=== PATIENT | female | born 1990 | race Caucasian/White ===

== ENCOUNTER 2017-09-26 17:06 | Emergency (ER) | payer OTHER ==
--- NOTE | 2017-09-26 17:11 | EDPHY ---
H & P Source: Patient Exam Limitations: No limitations Time Seen by Provider: 09/26/17 17:11 HPI/ROS: HPI: This is a 27-year-old female who presents with Chief Complaint: Right calf DVT Location: Right calf Quality: Blood clot Duration: 6 days Signs and Symptoms: No bleeding, no radiation, no numbness, no weakness, no tingling, no incontinence, no decreased range of motion, + swelling, + pain, no fever, no skin color changes Timing: Gradually worsened Severity: Moderate Context: Patient was sent from Radiology with a positive right lower extremity ultrasound showing deep venous thrombosis in the peroneal veins of the right calf. Patient reports that she recently went to [place] on a trip. She is a smoker. Does not take oral control pills. Patient works at a [employer] center and has a sedentary lifestyle. She noticed on Thursday right calf pain that was mild in nature and described as achy as well as nonradiating. She then over the next 2 days noticed some right calf swelling. Denies paresthesias , weakness, skin color changes. Patient has health insurance and a primary care provider. She denies any history of lung disease. Denies any shortness of breath, palpitations, chest pain. Modifying Factors: None Comment: ROS: see HPI Constitutional: No fever, no chills, no weight loss Eyes: No blurred vision Respiratory: No shortness of breath, no cough Cardiovascular: No chest pain Gastrointestinal: No nausea, no vomiting no diarrhea Genitourinary: No dysuria Extremities: No myalgias Neurologic: No weakness, no numbness Skin: No rashes Hematologic: No bruising, no bleeding MEDICAL/SURGICAL/SOCIAL HISTORY: Medical history: Generally healthy. Does not take any regular medications. Surgical history: Denies Social history: Employed. Smoker. CONSTITUTIONAL: Extremely pleasant nontoxic appearing young adult white female , awake and alert, no obvious distress HEENT: Atraumatic and normocephalic, PERRL, EOMI. Nares patent; no rhinorrhea; no nasal mucosal edema. Tympanic membranes clear. Oropharynx clear, no exudate and moist pink mucosa. Airway patent. No lymphadenopathy. No meningismus. Cardiovascular: Normal S1/S2, regular rate, regular rhythm, without murmur rub or gallop. PULMONARY/CHEST: Symmetrical and nontender. Clear to auscultation bilaterally. Good air movement. No accessory muscle usage. ABDOMEN: Soft, nondistended, nontender, no rebound, no guarding, no peritoneal signs, no masses or organomegaly. No CVAT. EXTREMITIES: 2/2 pulses, strength 5/5, moderate tenderness with palpation of the right calf. No palpable cord. No varicose vein. no deformities, no clubbing, no cyanosis or edema. NEUROLOGICAL: no focal neuro deficits. GCS 15. SKIN: Warm and dry, no erythema. no rash. Good capillary refill. (No Fink) Constitutional: Initial Vital Signs Temperature (C) 36.9 C 09/26/17 17:10 Heart Rate 79 09/26/17 17:10 Respiratory Rate 16 09/26/17 17:10 Blood Pressure 134/126 H 09/26/17 17:10 O2 Sat (%) 96 09/26/17 17:10 O2 Delivery Mode Room Air Allergies/Adverse Reactions: No Known Allergies Allergy (Unverified 09/26/17 17:09) Home Medications: Medication Instructions Recorded Apixaban [Eliquis 30-day Starter 1 kit PO AD #1 kit 09/26/17 Pack] Medical Decision Making ED Course/Re-evaluation: BMP level drawn for kidney function as Case management is verifying which oral anticoagulant is covered under her policy. Creatinine 0.5 with a GFR greater than 60. Eliquis 10 mg given as well as a prescription for 10 mg twice a day x 7 days and 5 mg twice a day; 30 day starter pack. No signs of neurovascular compromise/tenting of skin/compartment syndrome/ extremities and joints examined above and below area of concern and are neurovascularly intact/cellulitis. This patient was seen under the supervision of my secondary supervising physician. I evaluated care for this patient independently. Discussed this patient with Dr. Delcid who did not see the patient. (No Fink) I did not see this patient while she was in the emergency department. However her care was discussed with the PA while the patient was in the department. I agree with treatment plan and management (Grayson Delcid) Differential Diagnosis: Leg swelling including but not limited to hypoalbuminemia, congestive heart failure, cor pulmonale, chronic venous stasis and DVT. (No Fink) - Data Points Laboratory Results: Laboratory Results 09/26/17 17:20 Medications Given: Discontinued Medications Apixaban (Eliquis) 10 mg PO EDNOW ONE Stop: 09/26/17 17:49 Last Admin: 09/26/17 18:15 Dose: 10 mg Departure - Departure Disposition: Home, Routine, Self-Care Clinical Impression: Acute deep vein thrombosis of right peroneal vein Condition: Good Instructions: Deep Vein Thrombosis (ED) Additional Instructions: Please take Eliquis 10 mg twice daily x7 days then 5 mg twice daily for a minimum of 3 months. Today you have been given Eliquis starter pack. Your primary care provider will need to reorder more medication for a minimum of 3 months. Make a close follow-up appointment with her primary care provider in the next 1- 2 weeks. Return to the ER immediately if you experience new or worsening pain, discoloration, numbness, tingling, or any other symptoms that concern you. Referrals: Patient,NotPresent [Primary Care Provider] - As per Instructions Prescriptions: Apixaban [Eliquis 30-day Starter Pack] 1 kit PO AD #1 kit
[2017-09-26] MEDS ORDERED: APIXABAN 5 MG TAB PO ONE (17:48)
[2017-09-26 18:20] VITALS: BP 138/79
--- NOTE | 2017-09-27 14:06 | ASDISCHSUM ---
Discharge Information Plan Status:Home with No Needs Medically Cleared to Leave: Discharge Date:09/26/2017 06:20 PM CM D/C Disposition:Home, Routine, Self-Care ADT D/C Disposition:Home, Routine, Self-Care Projected Discharge Date:09/26/2017 06:20 PM Transportation at D/C:None or Unknown Discharge Delay Reason: Follow-Up Date:09/26/2017 06:20 PM Discharge Slot: Final Diagnosis: Placement Information Patient Contact Information Contact Name:YANNICK Relationship: Address: Work Phone: City: [facility] Phone: State/[place] Code: Email: Financial Information Financial Class:[facility] Primary Plan Desc:[employer] O HMO OPEN ACC LOCAL Primary Plan Number:[id number] Secondary Plan Desc: Secondary Plan Number: Assessment Information Intervention Information Intervention Type:Medication Date of Service:09/27/2017 02:04 PM Patient Type:Emergency Room Staff Member:SHELLI Mcfarland Sharon Hours:0.25 Discipline:[employer] Severity: Comment:Daniel murrell
== END 2017-09-26 18:20 | disposition home or self-care (01) ==
DX: I82.491 Acute embolism and thrombosis of other specified deep vein of right lower extremity (principal); F17.200 Nicotine dependence, unspecified, uncomplicated

== ENCOUNTER → 2017-09-26 | Outpatient (CLI) | payer OTHER | LOC: FIMAGING 15:22 | PROVIDERS: ATTEND Family Medicine | DX: I82.4Z1 Acute embolism and thrombosis of unspecified deep veins of right distal lower extremity (principal) ==